=== PATIENT | male | born 1970 | race Caucasian/White ===

== ENCOUNTER 2021-03-16 08:40 | Emergency (ER) | payer OTHER, SELFPAY ==
--- NOTE | ~2021-03-16 | XR_ITS ---
EXAMINATION: XR chest 2V DATE: 03/16/2021 09:04 INDICATION: Chest pain after a sneeze. TECHNIQUE: Frontal and lateral views of the chest were obtained. COMPARISON: None. FINDINGS: A calcified left lung nodule is consistent with old granulomatous disease. No pleural effus ion or pneumothorax. The heart size is normal. IMPRESSION: 1. No acute cardiopulmonary disease. Reviewed, dictated and finalized at location A. ONARY FELLOW
[2021-03-16 08:50] VITALS: BP 143/81; PULSE 82; RESP 16; TEMP 36.8; O2SAT 96
--- NOTE | 2021-03-16 09:11 | ED.GENADULT ---
HPI - General Adult General Chief complaint: Unspecified Stated complaint: Chest Pain Time Seen by Provider: 03/16/21 09:12 Source: patient, RN notes reviewed and old records reviewed Mode of arrival: ambulatory Limitations: no limitations History of Present Illness HPI narrative: 60-year-old male presents to the [facility] with complaints of right sternal border chest wall pain after sneezing on Tuesday. Has taken ibuprofen 1 time. States it hurts to move, breathe and belch. Pain is reproducible with palpation along the right sternal border to the right pectoral muscle. Denies left-sided chest pain. No pain radiating. No nausea vomiting or diarrhea. No abdominal pain. Denies shortness of breath. Related Data Allergies Allergy/AdvReac Type Severity Reaction Status Date / Time Penicillins Allergy Unknown childhood Verified 03/16/21 09:21 allergy Review of Systems Review of Systems: All systems reviewed & are unremarkable except as noted in HPI and below Constitutional: Constitutional: Reports no additional constitutional complaints, Denies chills and Denies fever(s) Eyes: Eyes: Reports no additional eye complaints ENT: Reports system reviewed and no additional complaints, except as documented Cardiovascular: Cardiovascular: Reports chest pain (Chest wall pain right sternal border), Denies rapid heart rate, Denies pedal edema, Denies edema, Denies irregular heart rhythm, Denies leg edema, Denies lightheadedness and Denies radiating jaw, neck or arm pain Respiratory: Respiratory: Reports no additional respiratory complaints, Denies cough, Denies dyspnea and Denies wheezing Gastrointestinal: Gastrointestinal: Reports no additional gastrointestinal complaints Musculoskeletal: Musculoskeletal: Reports no additional musculoskeletal complaints Integumentary/Breasts: Skin/Breast: Reports system reviewed and no additional complaints, except as docu Neurologic: Reports system reviewed and no additional complaints, except as documented Psychiatric: Psychiatric: Reports no additional psychiatric complaints Allergic/Immunologic: Allergic/Immunologic: Reports no additional allergic/immunologic complaints [facility] Past Medical History Medical History Alcoholism /alcohol abuse Elevated blood pressure reading Hx of thyroid cancer Hyperglycemia Sleep apnea Surgical History Surgical History H/O hemorrhoidectomy History of tonsillectomy Family History Family History Father Hypertension Mother No problems noted. Sibling Diverticulitis Father Hypertension Social History Social History Smoking packs per day: 0.5 Smoking cigarettes per day: 10.0 Smoking status: Current every day smoker Alcohol intake: current Comments At the time of my signature, I reviewed and agree with the nursing past medical, surgical, social, and family history. There is no relevant family history pertinent to the patient complaint. Exam Const: General: healthy appearing, no acute distress and alert Nutritional Appearance: well nourished and obese Orientation/consciousness: patient oriented x3 Limitations: no limitations HENMT: Head: normal to inspection Ears: external ears normal Eyes: Pupils: Equal, round and reactive pupils present Neck: Neck: normal visual inspection, no lymphadenopathy and no meningeal signs Chest: Chest palpation & inspection: tenderness pectoral muscle (Right side) and costochondral junction (Right side) Resp: Effort & Inspection: normal respiratory effort and no use of accessory muscles Auscultation: clear to auscultation bilaterally, no crackles, no rales, no rhonchi and no wheezes Cardio: Rate: regular rate Rhythm: regular rhythm GI: GI Palp: Yes Soft to palpation and No Tenderness to palpation pre
== END 2021-03-16 09:25 | disposition home or self-care (01) ==
PROVIDERS: Emergency Provider Nurse Practitioner; PCP Internal Medicine
DX: M94.0 Chondrocostal junction syndrome [Tietze] (principal); F17.210 Nicotine dependence, cigarettes, uncomplicated
CPT/HCPCS: 71046; 99213; G0463

== ENCOUNTER 2021-11-17 08:00 | Outpatient (NON) | payer OTHER, SELFPAY | END 2021-11-17 08:01 | disposition home or self-care (01) | LOC: ANHLAB 11-18 08:07 | PROVIDERS: PCP Internal Medicine; Visit Provider Internal Medicine Gastroenterology | DX: R19.5 Other fecal abnormalities (principal); D12.3 Benign neoplasm of transverse colon; K63.5 Polyp of colon | CPT/HCPCS: 88305 ==

== ENCOUNTER 2021-11-17 12:21 | Day surgery (SDC) | payer OTHER, SELFPAY ==
[2021-10-29 13:33] VITALS: BMI 32.8
--- NOTE | 2021-11-17 07:19 | WPDANESEPPF ---
Anes - Initial Pre Proc Eval Procedure: Operation Date: 11/17/21 13:00 Proposed Procedures p Diagnostic Colonoscopy - Jared Ojeda MD Date/Time: 11/17/21 07:19 Surgeon: Jared Ojeda MD Pre Op Diagnosis: positive cologaurd Patient Data Age: 50 Gender: M Height: 1.78 m Weight: 104 kg Allergies Allergy/AdvReac Type Severity Reaction Status Date / Time Penicillins Allergy Unknown childhood Verified 11/17/21 12:44 allergy Home Medications Medication Instructions Recorded Confirmed Type trazodone 100 mg tablet 200 mg PO .hs PRN insomnia #180 08/10/21 11/17/21 Rx tabs sodium sul 1.479 gram-potas ch See Rx Instructions PO PER PKG DIR 09/18/21 Rx 0.188 gram-magnes sul 0.225 gram #24 tabs tablet (Sutab) losartan 25 mg tablet See Rx Instructions .Route 10/08/21 11/17/21 Rx .COMPLEX #90 tabs ibuprofen 600 mg tablet 600 mg PO DAILY PRN pain 10/29/21 11/17/21 History naltrexone 50 mg tablet 50 mg PO DAILY 10/29/21 11/17/21 History Patient hx anesthesia problems: none Family hx anesthesia problems: none Results Review: All pre-operative results and documents have been reviewed as part of the pre-operative evaluation. [facility] Past Medical History Medical History (Updated 11/17/21 @ 13:46 by Bradly Silva DO) Alcoholism /alcohol abuse quit 2020 Elevated blood pressure reading Hx of thyroid cancer Hyperglycemia Hypertension Obesity Sleep apnea Tobacco abuse Surgical History Surgical History (Updated 08/11/21 @ 14:15 by Lin Vigil NP) H/O hemorrhoidectomy H/O partial thyroidectomy History of tonsillectomy Family History Family History Father Hypertension Mother No problems noted. Sibling Diverticulitis Father Hypertension Social History Social History (Updated 11/17/21 @ 13:46 by Bradly Silva DO) Smoking packs per day: 0.5 Smoking cigarettes per day: 10.0 Smoking status: Current every day smoker Tobacco type: cigarettes Alcohol intake: current Alcohol use details: former alcoholic - quit 2020 Living arrangements: with family Spiritual care concerns: No Anes - Eval Final PreProcedure Day of Procedure 11/17/21 07:19 Patient weight: obese Heart: regular rate and rhythm Lungs: clear to auscultation Airway: Mallampati scale class II Neurological: alert and oriented Last oral intake: >/= 8 hours ASA classification: III Emergent: no Anesthetic plan: proceed Anesthesia type and monitoring: general GIVS and standard monitoring Results Review: All pre-operative results and documents have been reviewed as part of the pre-operative evaluation. Informed Consent: The patient's anesthetic plan and its attendant risks and benefits were discussed with the patient/family/POA. Questions were solicited and answers provided to the satisfaction of the patient/family/POA.
[2021-11-17 12:47] VITALS: BP 119/83; PULSE 71; RESP 12; TEMP 36.8; O2SAT 98
[2021-11-17] MEDS: LACTATED RINGERS 1,000 ML 150 ML IV CONT (12:54)
[2021-11-17 12:56] VITALS: BMI 32.5
--- NOTE | 2021-11-17 13:47 | PM.HPGS ---
History of Present Illness History of Present Illness Consent: Risks, benefits, and alternatives have been discussed and questions answered. Patient agrees to proceed with procedure. Chief complaint: positive cologaurd Narrative: Annie Cortes is a 50 year old male here for first colonoscopy, had positive cologuard Review of Systems Constitutional: Constitutional: Denies headache(s) and Denies weakness Eyes: Eyes: Denies blurry vision ENT: Reports Normal hearing present, Denies headache(s) and Denies neck pain Cardiovascular: Cardiovascular: Denies chest pain and Denies dyspnea Respiratory: Respiratory: Denies dyspnea Gastrointestinal: Gastrointestinal: Reports no additional gastrointestinal complaints Genitourinary: Genitourinary: Denies dysuria Musculoskeletal: Musculoskeletal: Denies neck pain Integumentary/Breasts: Skin/Breast: Denies dry skin Neurologic: Reports Normal hearing present, Denies headache(s) and Denies weakness Psychiatric: Psychiatric: Denies anxiety Endocrine: Endocrine: Denies change in body appearance Hematologic/Lymphatic: Hematologic/Lymphatic: Denies easy bleeding Allergic/Immunologic: Allergic/Immunologic: Denies urticaria PMF Past Medical History Medical History (Updated 11/17/21 @ 13:46 by Bradly Silva DO) Alcoholism /alcohol abuse quit 2020 Elevated blood pressure reading Hx of thyroid cancer Hyperglycemia Hypertension Obesity Sleep apnea Tobacco abuse Surgical History Surgical History (Updated 08/11/21 @ 14:15 by Lin Vigil NP) H/O hemorrhoidectomy H/O partial thyroidectomy History of tonsillectomy Family History Family History Father Hypertension Mother No problems noted. Sibling Diverticulitis Father Hypertension Social History Social History (Updated 11/17/21 @ 13:46 by Bradly Silva DO) Smoking packs per day: 0.5 Smoking cigarettes per day: 10.0 Smoking status: Current every day smoker Tobacco type: cigarettes Alcohol intake: current Alcohol use details: former alcoholic - quit 2020 Living arrangements: with family Spiritual care concerns: No Meds Home Medications and Allergies Home Medications Medication Instructions Recorded Confirmed Type trazodone 100 mg tablet 200 mg PO .hs PRN insomnia #180 08/10/21 11/17/21 Rx tabs sodium sul 1.479 gram-potas ch See Rx Instructions PO PER PKG DIR 09/18/21 Rx 0.188 gram-magnes sul 0.225 gram #24 tabs tablet (Sutab) losartan 25 mg tablet See Rx Instructions .Route 10/08/21 11/17/21 Rx .COMPLEX #90 tabs ibuprofen 600 mg tablet 600 mg PO DAILY PRN pain 10/29/21 11/17/21 History naltrexone 50 mg tablet 50 mg PO DAILY 10/29/21 11/17/21 History Allergies Allergy/AdvReac Type Severity Reaction Status Date / Time Penicillins Allergy Unknown childhood Verified 11/17/21 12:44 allergy Vital Signs Vital Signs - 24 hr 11/17/21 12:47 Temperature 98.3 F Pulse Rate 71 Respiratory Rate 12 Blood Pressure 119/83 Pulse Oximetry 98 Oxygen Delivery Room Air Exam Const: General: comfortable and no acute distress HENMT: General nose exam: Normal nares present Eyes: General: appearance normal, both eyes and all related structures Neck: Neck: no JVD Resp: Auscultation: clear to auscultation bilaterally Cardio: Rate: regular rate Rhythm: regular rhythm GI: Inspection: non-distended GI Palp: Yes Soft to palpation Skin: General skin exam: normal color Neuro: General: gait normal Speech: normal speech Extrem: General: normal to inspection Psych: Mental Status: mental status grossly normal Assessment and Plan Assessment and plan (1) Positive colorectal cancer screening using Cologuard test: Code(s): R19.5 - Other fecal abnormalities Status: Acute Assessment and Plan: colonoscopy
[2021-11-17 14:07] VITALS: BP 112/76; PULSE 70; RESP 18; O2SAT 99
[2021-11-17 14:17] VITALS: BP 123/84; PULSE 70; RESP 18; O2SAT 98
[2021-11-17 14:27] VITALS: BP 120/70; PULSE 70; RESP 18; O2SAT 98
--- NOTE | 2021-11-17 14:31 | SUR.PHASEII ---
PT ATE CRACKERS AND TOOK PO FLUIDS. DENIES PAIN. MEETS DISCHARGE CRITERIA
--- NOTE | 2021-11-17 14:33 | WPDANESPN ---
Anes - Prog Note Post-Op Date/Time: 11/17/21 14:33 Cardiovascular status: normal Respiratory status: normal Airway patency: baseline Mental status: baseline Post-Op hydration status: normal Vital Signs: Last Vital Signs Temp 36.8 C 11/17/21 12:47 Pulse 70 11/17/21 14:27 Resp 18 11/17/21 14:27 BP 120/70 11/17/21 14:27 Pulse Ox 98 11/17/21 14:27 O2 Del Method Room Air 11/17/21 14:27 Pain Score (VAS): 0 I/O: Intake & Output 11/16/21 11/17/21 11/17/21 23:59 07:59 15:59 Intake Total 150 Balance 150 Post-procedural complaints: none Patient Feedback: Patient satisfied with anesthetic care. Other Findings: Patient vital signs back to baseline. Patient denies nausea and vomiting. Patient's pain under control. Patient OK for discharge.
== END 2021-11-17 14:33 | disposition home or self-care (01) ==
PROVIDERS: PCP Internal Medicine; Visit Provider Internal Medicine Gastroenterology
PROC: 0DJD8ZZ Inspection of Lower Intestinal Tract, Via Natural or Artificial Opening Endoscopic (ICD-10-PCS; CPT 45378; principal; 2021-11-17 13:00)
DX: R19.5 Other fecal abnormalities (principal)
CPT/HCPCS: 45385; 45380

== ENCOUNTER 2023-10-29 09:33 | Outpatient (CLI) | payer OTHER, SELFPAY ==
--- NOTE | ~2023-10-29 | XR_ITS ---
EXAMINATION: HAND-DORIAN ARTHRITIS 3+VIEWS DATE: 10/29/2023 09:53 INDICATION: Bilateral wrist pain and swelling TECHNIQUE: Posteroanterior, lateral, and oblique views of the left and of the right hands as well as a ballcatchers view of both hands were obtained. COMPARISON: None. FINDINGS: Alignment is normal at the bilateral hands and wrists. Old healed fracture deformity right fifth meta carpal. No acute fracture. Severe osteoarthritis at the bilateral first carpal metacarpal joints. Add itional polyarticular osteoarthritis, moderate severity at several of the bilateral distal interphala ngeal joints and mild at the remaining interphalangeal joints, the bilateral distal radioulnar, trisc aphe and multiple metacarpophalangeal joints. Subarticular cystic change within sclerotic margins at the head of the right second metacarpal. No erosions to suggest an inflammatory arthritis. IMPRESSION: 1. Polyarticular osteoarthritis at the bilateral hands and wrists, severe at the bilateral first carp al metacarpal joints. Reviewed, dictated and finalized at location A. IMPRESSION: 1. Polyarticular osteoarthritis at the bilateral hands and wrists, severe at th e bilateral first carpal metacarpal joints.
== END 2023-10-29 09:34 | disposition home or self-care (01) ==
LOC: ANHIMG 09:34
PROVIDERS: PCP Internal Medicine; Visit Provider Clinical Nurse Specialist
DX: M19.041 Primary osteoarthritis, right hand (principal); M19.042 Primary osteoarthritis, left hand; M19.031 Primary osteoarthritis, right wrist; M19.032 Primary osteoarthritis, left wrist
CPT/HCPCS: 73130

== ENCOUNTER 2023-11-09 08:03 | Outpatient (CLI) | payer OTHER, SELFPAY ==
--- NOTE | ~2023-11-09 | US_ITS ---
EXAMINATION: US right upper quadrant DATE: 11/09/2023 08:46 INDICATION: Elevation of levels of liver transaminases. TECHNIQUE: Multiple grayscale and Doppler ultrasound images of the abdomen were obtained. COMPARISON: None FINDINGS: The visualized portions of the head, body, and tail of the pancreas are normal. There is di ffuse hepatic steatosis. No liver surface nodularity. There is a 3.1 cm cyst in the liver. There is n ormal flow in main portal vein. The gallbladder is normal in size. No gallstones or gallbladder wall thickening. There is no sonographic Bah's sign. The common duct is normal and measures 3 mm. IMPRESSION: 1. Diffuse hepatic steatosis. Reviewed, dictated and finalized at location A.
== END 2023-11-09 08:04 | disposition home or self-care (01) ==
PROVIDERS: PCP Internal Medicine; Visit Provider Clinical Nurse Specialist
DX: R74.01 Elevation of levels of liver transaminase levels (principal); K76.0 Fatty (change of) liver, not elsewhere classified
CPT/HCPCS: 76705

== ENCOUNTER 2024-02-22 15:17 | Outpatient (CLI) | payer OTHER, SELFPAY ==
--- NOTE | 2024-02-22 15:32 | ECG_ITS ---
Test Date: 2024-02-22 15:49:45 Measurements Intervals [place] Rate: 72 P: 48 NC: 152 QRS: 12 QRSD: 109 T: 50 QT: 368 QTc: 405 Interpretive Statements SINUS RHYTHM INCOMPLETE RIGHT BUNDLE BRANCH BLOCK BASELINE ARTIFACT- II, III, AVF BORDERLINE ECG No previous ECG available for comparison Electronically Signed On 02-22-2024 15:58:21 [employer] by Naresh Hernández D.O.
== END 2024-02-22 15:18 | disposition home or self-care (01) ==
LOC: ANHCARD 15:19
PROVIDERS: PCP Internal Medicine; Visit Provider Anesthesiology
DX: Z01.818 Encounter for other preprocedural examination (principal); I10 Essential (primary) hypertension; I45.10 Unspecified right bundle-branch block
CPT/HCPCS: 93005

== ENCOUNTER 2024-02-29 01:11 | Day surgery (SDC) | payer OTHER, SELFPAY ==
[2024-02-21 13:33] VITALS: BMI 30.9
--- NOTE | 2024-02-21 13:40 | PC.NURSE ---
Report to the Outpatient Waiting Room, entrance under the green pavilion located off [facility], at time _0700_ on date _11-25-2080_. Planned Procedure Time: _0900_.? Time changes happen often and if your time is changed the preop area will call you the afternoon before. - You and your visitor will be asked to self-screen and do not enter if you have any COVID symptoms. Please call surgeon if you need to reschedule. - A mask is optional within the hospital at this time. - No food or drink from midnight until time of surgery and no smoking Take only the following medications with a SIP of water on the morning of surgery: __None DO NOT STOP ANY OF YOUR OTHER PRESCRIPTION MEDICATIONS PRIOR TO SURGERY EXCEPT THE FOLLOWING Medications to discontinue per physician ___None, patient says Dr Rodriguez told him to take Ibuprofen or naproxen.__ Please no make-up, nail mauritanian, hairspray, perfume, deodorant, or body powder the day of surgery.? No jewelry (including any body piercings) or valuables the day of surgery, leave them at home.? Please take a shower or bath the night before, or the morning of, surgery with an antibacterial soap.? Wear comfortable, loose fitting clothing.? - Jewelry must be removed prior to entering the operating room.? Rings and piercings that are not removed may be cut off. - The hospital will not accept responsibility for valuables.? - Please leave all valuables, including medications, at home the day of surgery. If you are going home after surgery, a licensed sweeper driver must drive you home.? - NO public transportation without another adult if you receive anesthesia. - We recommend that an adult stay with you for 24 hours following discharge. - We also recommend that you do not drive, make important decision, drink alcoholic beverages, or take any drugs that were not prescribed by your health care provider for at least 24 hours after your discharge time. Follow any additional instructions given to you from your surgeon. Telephone instructions given to _Annie___and asked if any additional questions and then verbalized understanding. Patient advised to call surgeon office or pre surgery nurse liaison [phone] if any additional questions.
--- NOTE | 2024-02-29 06:49 | PM.HPGS ---
History of Present Illness History of Present Illness Chief complaint: primary OA left hand Narrative: Patient seen and examined in pre-operative holding area. No interval change in medical history or symptoms. Patient recalls previous discussion of benefits and alternatives to procedure. Continues to desire to proceed with left basal joint arthroplasty. Reviewed procedure, post-op expectations and risks including but not limited to bleeding, infection, injury to tendon/nerve/vessel, decreased hand function, stiffness, RSD, no change or worsening of symptoms, hardware complication. I discussed the possible use of assistants and their participation in the case. Patient stated understanding and signed the consent form wishing to proceed. Review of Systems Review of Systems: All systems reviewed & are unremarkable except as noted in HPI and below PMFSH Past Medical History Medical History Alcoholism /alcohol abuse Elevated blood pressure reading Hx of thyroid cancer Hyperglycemia Hypertension Obesity Positive colorectal cancer screening using Cologuard test Sleep apnea Tobacco abuse Surgical History Surgical History H/O hemorrhoidectomy H/O partial thyroidectomy History of tonsillectomy Family History Family History Father Hypertension Mother No problems noted. Sibling Diverticulitis Father Hypertension Social History Social History Smoking packs per day: 0.5 Smoking cigarettes per day: 10.0 Years smoked: 30 Smoking pack-years: 15.00 Smoking status: Current every day smoker Tobacco type: cigarettes Alcohol intake: current Drinks per week: 40 Alcohol use details: former alcoholic - quit 2020 Lack of Transportation: No Lack of Food: Never True Current Housing: I Have Housing Concerned About Future Housing: No Difficulty Paying Gas/Electric Bills: No Difficulty Paying for Meds: No Currently Unemployed: No Education: High School Diploma/GED Living arrangements: with family Spiritual care concerns: No Meds Home Medications and Allergies Home Medications Medication Instructions Recorded Confirmed Type naproxen sodium 220 mg capsule 220 mg PO BID PRN Pain 11/22/22 02/21/24 History (Aleregina) losartan 50 mg tablet 50 mg PO DAILY #90 tabs 12/19/23 02/21/24 Rx trazodone 100 mg tablet 200 mg PO .hs PRN insomnia #180 12/19/23 02/21/24 Rx tabs triamcinolone acetonide 0.1 % 1 applic topical BID #80 grams 12/20/23 02/21/24 Rx topical ointment Allergies Allergy/AdvReac Type Severity Reaction Status Date / Time Penicillins Allergy Unknown childhood Verified 02/21/24 13:31 allergy Exam Narrative: unchnaged Assessment and Plan Assessment and plan (1) Osteoarthritis of hands, bilateral: Qualifiers: Osteoarthritis type: primary Qualified Code(s): M19.041 - Primary osteoarthritis, right hand; M19.042 - Primary osteoarthritis, left hand Code(s): M19.041 - Primary osteoarthritis, right hand; M19.042 - Primary osteoarthritis, left hand Status: Acute Assessment and Plan: cont as above
--- NOTE | 2024-02-29 06:50 | W.PM.PROC2 ---
Procedure Note - Detailed Date of Procedure 02/29/24 Pre-op Diagnosis left basal joint arthritis Post-op Diagnosis Same Procedure Performed left basal joint artrhoplasty with mini-tightrope Surgeon Kaylin Rodriguez MD Manager [employer] peggy garrett pa-c Anesthesia General Description of Procedure INFORMED CONSENT: The patient was seen and examined and marked in the pre-op area.? The patient signed the consent form. PROCEDURE IN DETAIL:The patient taken back to OR on the stretcher in supine position. Time out performed with anesthesia, surgeon and staff agreeing on patient's name site and surgery to be performed SCDs were placed on the lower extremities and inflated. A tourniquet was placed on {left} upper extremity and antibiotics given IV After anesthesia administered sedation I injected {8}cc 1%lido and 0.5% marcaine plain at the operative site The?{left upper extremity}?was prepped and draped in sterile fashion the??{left upper extremity} was? exsanguinated with Esmarch bandage and tourniquet inflated to 250mmHg I proceeded with making an incision over the left first cmc joint between first and third extensor compartments through skin and dermis. Littler scissors were used to spread down to the joint capsule. A dorsal branch of the radial sensory nerve was identified and protected throughout the procedure. I incised the capsule with 15 blade and elevated capsular flaps. Mini c-arm was used to verify the position of dissection and trapezium. Using a compination of 15 blade and Mcglamery elevator the trapezium was resected. This was verified on mini c-arm. Next, I proceeded with making a longitudinal incision over the base of the second metacarpal through skin and dermis with 15 blade. Littler scissors were used to spread down to the metacarpal. An incision was made in periosteum which was refelexted on the ulnar side. I next proceeded with using mini c-ring guid and placing the dual gauge looped wire from radial side of first metacarpal to base of second metacarpal. Wire placement was confirmed on multiple views of fluoro. I used 15 blade to make small incision at k-wire insertion site by the thumb spreading down to periosteum and then proceeded with placing the arthrex mini tightrope in standard fashion. The button was verified as abutting the first metacarpal and then second button placed down to the second metacarpal. thumb distraction, positiong and tensioning was verified and the tightrope sewn into place. There was no impingement on thumb range of motion and no subsidence on axial load. I irrigated with normal saline. Repaired periosteum over second metacarpal buttong with 3-0 vicry. 3-0 vicryl used for capsule repair. 3-0 vicryl used for dermis and 4-0 monocryl for subcuticular A dressing of dermabond, 4x4, yvette, and a thumb spica splint was applied for patient safety, security, and comfort and secured with an abbey bandage after the tourniquet was let down noting the hand was warm and well perfused. The patient was then awaken from anesthesia and transferred to the recovery room in stable condition.? Complications - none EBL- 0cc Disposition - home in stable conditions Peggy Garrett PA-C was essential for positioning, retraction, closure and dressing placement [facility] Billing Surgery - Charge Forward: Surgery Billing ([id number] for peggy)
[2024-02-29 07:20] VITALS: BP 133/93; PULSE 82; RESP 18; TEMP 36.7; O2SAT 100
[2024-02-29 07:36] VITALS: BMI 30.7
[2024-02-29] MEDS: LACTATED RINGERS 1,000 ML 30 ML IV CONT (07:41)
--- NOTE | 2024-02-29 08:30 | SUR.PREOP ---
0815 Dr Rodriguez notified patient of surgery cancellation due to broken C-arm machine. Patient notified that he will be contacted for rescheduling.
== END 2024-02-29 08:45 | disposition home or self-care (01) ==
PROVIDERS: PCP Internal Medicine; Visit Provider Plastic Surgery
PROC: (CPT 25447; principal; 2024-02-29 09:00)
DX: M19.042 Primary osteoarthritis, left hand (principal); Z53.8 Procedure and treatment not carried out for other reasons
CPT/HCPCS: 99213; A9270; G0463; J2004; J2250; J3010; J7120

== ENCOUNTER 2024-03-28 00:35 | Day surgery (SDC) | payer OTHER, SELFPAY ==
[2024-03-20 15:49] VITALS: BMI 30.4
--- NOTE | 2024-03-20 15:50 | PC.NURSE ---
Report to the Outpatient Waiting Room, entrance under the green pavilion located off [facility], at time _0600_ on date _[id number]_. Planned Procedure Time: _0730_.? Time changes happen often and if your time is changed the preop area will call you the afternoon before. - You and your visitor will be asked to self-screen and do not enter if you have any COVID symptoms. Please call surgeon if you need to reschedule. - A mask is optional within the hospital at this time. Patients may have clear liquids (water, carbonated beverages, clear teas, apple juice) until 3 hours prior to surgery with a maximum of 20 ounces. - No food from midnight until time of surgery and no smoking. This includes no chewing gum, candy or mints. Take only the following medications with a SIP of water on the morning of surgery: None DO NOT STOP ANY OF YOUR OTHER PRESCRIPTION MEDICATIONS PRIOR TO SURGERY EXCEPT THE FOLLOWING Medications to discontinue per physician Multivitamin Date to take last wtkb____[id number]____Vjxaznf last took Semaglutide 02-29-2024 Please no make-up, nail sammarinese, hairspray, perfume, deodorant, or body powder the day of surgery.? No jewelry (including any body piercings) or valuables the day of surgery, leave them at home.? Please take a shower or bath the night before, or the morning of, surgery with an antibacterial soap.? Wear comfortable, loose fitting clothing.? . - Jewelry must be removed prior to entering the operating room.? Rings and piercings that are not removed may be cut off. - The hospital will not accept responsibility for valuables.? - Please leave all valuables, including medications, at home the day of surgery. If you are going home after surgery, a licensed taxi cab driver must drive you home.? - NO public transportation without another adult if you receive anesthesia. - We recommend that an adult stay with you for 24 hours following discharge. - We also recommend that you do not drive, make important decision, drink alcoholic beverages, or take any drugs that were not prescribed by your health care provider for at least 24 hours after your discharge time. Follow any additional instructions given to you from your surgeon. Telephone instructions given to _Annie___and asked if any additional questions and then verbalized understanding. Patient advised to call surgeon office or pre surgery nurse liaison [phone] if any additional questions.
--- NOTE | 2024-03-20 16:01 | PC.NURSE ---
Report to the Outpatient Waiting Room, entrance under the green pavilion located off [facility], at time _0600_ on date _[id number]_. Planned Procedure Time: _0730_.? Time changes happen often and if your time is changed the preop area will call you the afternoon before. - You and your visitor will be asked to self-screen and do not enter if you have any COVID symptoms. Please call surgeon if you need to reschedule. - A mask is optional within the hospital at this time. - No food or drink from midnight until time of surgery and no smoking. This includes no chewing gum, candy or mints. Take only the following medications with a SIP of water on the morning of surgery: None DO NOT STOP ANY OF YOUR OTHER PRESCRIPTION MEDICATIONS PRIOR TO SURGERY EXCEPT THE FOLLOWING Medications to discontinue per physician ____Multivitamin Date to take last mqcl___[id number] Please no make-up, nail macedonian, hairspray, perfume, deodorant, or body powder the day of surgery.? No jewelry (including any body piercings) or valuables the day of surgery, leave them at home.? Please take a shower or bath the night before, or the morning of, surgery with an antibacterial soap.? Wear comfortable, loose fitting clothing.? . - Jewelry must be removed prior to entering the operating room.? Rings and piercings that are not removed may be cut off. - The hospital will not accept responsibility for valuables.? - Please leave all valuables, including medications, at home the day of surgery. If you are going home after surgery, a licensed courtesy van driver must drive you home.? - NO public transportation without another adult if you receive anesthesia. - We recommend that an adult stay with you for 24 hours following discharge. - We also recommend that you do not drive, make important decision, drink alcoholic beverages, or take any drugs that were not prescribed by your health care provider for at least 24 hours after your discharge time. Follow any additional instructions given to you from your surgeon. Telephone instructions given to __Kelly__and asked if any additional questions and then verbalized understanding. Patient advised to call surgeon office or pre surgery nurse liaison [phone] if any additional questions.
[2024-03-28] VITALS (8 sets, daily range): BP systolic 117–155; BP diastolic 73–93; PULSE 80–100; RESP 12–20; TEMP 36.5–36.7; O2SAT 93–98
--- NOTE | ~2024-03-28 | XR_ITS ---
EXAMINATION: XR surgery orthopedic DATE: 03/28/2024 09:09 INDICATION: Left basal joint arthroplasty. TECHNIQUE: 5 fluoroscopic images of the left hand were obtained during procedure performed by Dr. Gerry negrete. Radiologist was not present for the imaging or procedure. The amount of fluoroscopy time use d during this procedure was 0.4 minutes. Total DAP was 1.34 c0Gycm^2 COMPARISON: None. FINDINGS: Initial fluoroscopic image demonstrates the tip of a probe projecting over the scaphotrapezial articu lation. The trapezium has been resected on the subsequent images with residual lucent gas at the oper ative bed. A wire subsequently passed across the base of the first and second metacarpals. Final imag es demonstrate metallic buttons likely for tightrope type fixation across the base of the first and s econd metacarpals. No fractures identified. IMPRESSION: 1. Expected appearance during trapezial resection with tightrope type fixation across the first and s econd metacarpal bases. See procedure note for further detail. Reviewed, dictated and finalized at location A. TRONIC ENGINEERING TECHNICIAN IMPRESSION: 1. Expected appearance during trapezial resection with tightrope type fixation across the first and second metacarpal bases. See procedure note for further de tail.
[2024-03-28] MEDS: LACTATED RINGERS 1,000 ML 30 ML IV CONT ×2 (06:08→09:08)
--- NOTE | 2024-03-28 06:41 | PM.HPGS ---
History of Present Illness History of Present Illness Chief complaint: o/a bilateral hands Narrative: Patient seen and examined in pre-operative holding area. No interval change in medical history or symptoms. Patient recalls previous discussion of benefits and alternatives to procedure. Continues to desire to proceed with left basal joint artrhoplasty with mini tightrope . Reviewed procedure, post-op expectations and risks including but not limited to bleeding, infection, injury to tendon/nerve/vessel, decreased hand function, stiffness, RSD, no change or worsening of symptoms, failure of repair, hardware complications. I discussed the possible use of assistants and their participation in the case. Patient stated understanding and signed the consent form wishing to proceed. Review of Systems Review of Systems: All systems reviewed & are unremarkable except as noted in HPI and below PMFSH Past Medical History Medical History Positive colorectal cancer screening using Cologuard test Tobacco abuse Obesity Hypertension Alcoholism /alcohol abuse Hx of thyroid cancer Hyperglycemia Sleep apnea Elevated blood pressure reading Surgical History Surgical History H/O partial thyroidectomy History of tonsillectomy H/O hemorrhoidectomy Family History Family History Father Hypertension Mother No problems noted. Sibling Diverticulitis Father Hypertension Social History Social History Smoking packs per day: 0.5 Smoking cigarettes per day: 10.0 Years smoked: 30 Smoking pack-years: 15.00 Smoking status: Current every day smoker Tobacco type: cigarettes Additional smoking assessment comments: 2 packs per week Alcohol intake: current Drinks per week: 24 Alcohol use details: former alcoholic - quit 2020 Lack of Transportation: No Lack of Food: Never True Current Housing: I Have Housing Concerned About Future Housing: No Difficulty Paying Gas/Electric Bills: No Difficulty Paying for Meds: No Currently Unemployed: No Education: High School Diploma/GED Living arrangements: with family Spiritual care concerns: No Meds Home Medications and Allergies Home Medications ?Medication ?Instructions ?Recorded ?Confirmed ?Type naproxen sodium 220 mg capsule 220 mg PO BID PRN Pain 11/22/22 03/20/24 History (Aleve) semaglutide (weight loss) See Rx Instructions .Route .COMPLEX 02/29/24 03/20/24 History multivitamin 1 tablet PO DAILY 03/02/24 03/20/24 History losartan 50 mg tablet 50 mg PO DAILY #90 tabs 03/13/24 03/20/24 Rx trazodone 100 mg tablet 200 mg (2 x 100 mg) PO .hs PRN 03/13/24 03/20/24 Rx insomnia #180 tabs Allergies Allergy/AdvReac Type Severity Reaction Status Date / Time Penicillins Allergy Unknown childhood Verified 03/20/24 15:42 allergy Exam Narrative: unchnaged Assessment and Plan Assessment and plan (1) Osteoarthritis of first carpometacarpal joint of left hand: Qualifiers: Osteoarthritis type: primary Qualified Code(s): M18.12 - Unilateral primary osteoarthritis of first carpometacarpal joint, left hand Code(s): M18.12 - Unilateral primary osteoarthritis of first carpometacarpal joint, left hand Status: Acute Assessment and Plan: cont as above
--- NOTE | 2024-03-28 06:42 | P.OP_ITS ---
Procedure Note - Detailed Date of Procedure 03/28/24 Pre-op Diagnosis left basal joint arthritis Post-op Diagnosis Same Procedure Performed left basal joint arthroplasty with mini tightrope Surgeon Kaylin Rodriguez MD Warehouse Coordinator peggy garrett pa-c Anesthesia MAC Description of Procedure INFORMED CONSENT: The patient was seen and examined and marked in the pre-op area.? The patient signed the consent form. PROCEDURE IN DETAIL:The patient taken back to OR on the stretcher in supine p osition. Time out performed with anesthesia, surgeon and staff agreeing on patient's name site and surgery to be performed SCDs were placed on the lower extremities and inflated. A tourniquet was placed on {left} upper extremity and antibiotics given IV After anesthesia administered sedation I injected {8}cc 1%lido with epi and 0.5% marcaine plain at the operative site The?{left upper extremity}?was prepped and draped in sterile fashion the??{left upper extremity} was? exsanguinated with Esmarch bandage and tourniquet inflated to 250mmHg I proceeded with making a longitudinal incision over left trapezium through skin and dermis with a 15 blade scalpel between first and third compartments. Littler scissors were used to spread down to the joint capsule. The dorsal radial sensory nerve was identified and protectedt throughout the procedure as well as dorsal radial artery. i made my capsulotomy sharply with 15 blade and elevated capsular flaps. I verified trapezium on mini c-arm and proceeded with trapeziectomy. This was verified on multiple views of fluoro. Next I proceeded with maing an incision over the proximal portion of second metacarpal on dorsum through skin and dermis with a 15 blade scalpel. Littler scissors were used to spread down the second metacarpal periosteum. [place] elevator was used to reflect periorsteum and intrinsic musculature on ulnar side. Next I proceeded with using the arthrex mini c-ring guide and placed the double gauge k-wire in radial to ulnar fashion from base of first metacarpal coming out on ulnar aspect second metacarpal base. wire placement was verified with fluoro and noting satisfactory position I proceeded with placing the mini tightrope in standard fashion. This was provisionally tightened and on live fluoro noting full thumb ROM and minimal subsidence on axial load without impingement. The tightrope was tightened. I irrigated with normal saline. Periosteum and capsule repaired with 3-0 vicryl 3-0 vicryl for dermis and 4-0 monocryl for subcuticular closure. A dressing of Dermabond, 4x4, yvette, and a thumb spica splint was applied for patient safety, security, and comfort and secured with an abbey bandage after the tourniquet was let down noting the hand was warm and well perfused. The patient was then awaken from anesthesia and transferred to the recovery room in stable condition.? Complications - none EBL- 0cc Disposition - home in stable conditions peggy garrett pa-c was essential for positioning, retraction, closure and dressing placement [facility] [place] Surgery - Charge Forward: Surgery Billing ([id number] for peggy)
--- NOTE | 2024-03-28 06:50 | WPDANESEPPF ---
Anes - Initial Pre Proc Eval Procedure: Operation Date: 03/28/24 07:30 Proposed Procedures p Left Basal Joint Arthroplasty with Mini Tight-Rope - Kaylin Rodriguez MD Date/Time: 03/28/24 06:50 Surgeon: Kaylin Rodriguez MD Pre Op Diagnosis: o/a bilateral hands Patient Data Age: 53 Gender: M Height: 1.78 m Weight: 96.4 kg Allergies Allergy/AdvReac Type Severity Reaction Status Date / Time Penicillins Allergy Unknown childhood Verified 03/20/24 15:42 allergy Home Medications ?Medication ?Instructions ?Recorded ?Confirmed ?Type naproxen sodium 220 mg capsule 220 mg PO BID PRN Pain 11/22/22 03/20/24 History (Aleve) semaglutide (weight loss) See Rx Instructions .Route .COMPLEX 02/29/24 03/20/24 History multivitamin 1 tablet PO DAILY 03/02/24 03/20/24 History losartan 50 mg tablet 50 mg PO DAILY #90 tabs 03/13/24 03/20/24 Rx trazodone 100 mg tablet 200 mg (2 x 100 mg) PO .hs PRN 03/13/24 03/20/24 Rx insomnia #180 tabs Patient hx anesthesia problems: none Family hx anesthesia problems: none Results Review: All pre-operative results and documents have been reviewed as part of the pre-operative evaluation. [facility] Past Medical History Medical History Positive colorectal cancer screening using Cologuard test Tobacco abuse Obesity Hypertension Alcoholism /alcohol abuse Hx of thyroid cancer Hyperglycemia Sleep apnea Elevated blood pressure reading Surgical History Surgical History H/O partial thyroidectomy History of tonsillectomy H/O hemorrhoidectomy Family History Family History Father Hypertension Mother No problems noted. Sibling Diverticulitis Father Hypertension Social History Social History Smoking packs per day: 0.5 Smoking cigarettes per day: 10.0 Years smoked: 30 Smoking pack-years: 15.00 Smoking status: Current every day smoker Tobacco type: cigarettes Additional smoking assessment comments: 2 packs per week Alcohol intake: current Drinks per week: 24 Alcohol use details: former alcoholic - quit 2020 Lack of Transportation: No Lack of Food: Never True Current Housing: I Have Housing Concerned About Future Housing: No Difficulty Paying Gas/Electric Bills: No Difficulty Paying for Meds: No Currently Unemployed: No Education: High School Diploma/GED Living arrangements: with family Spiritual care concerns: No Anes - Eval Final PreProcedure Day of Procedure 03/28/24 06:50 Patient weight: overweight Heart: regular rate and rhythm Lungs: decreased breath sounds Airway: Mallampati scale class II Neurological: alert and oriented Last oral intake: >/= 8 hours ASA classification: III Emergent: no Anesthetic plan: proceed Anesthesia type and monitoring: general LMA and standard monitoring Results Review: All pre-operative results and documents have been reviewed as part of the pre-operative evaluation. Informed Consent: The patient's anesthetic plan and its attendant risks and benefits were discussed with the patient/family/POA. Questions were solicited and answers provided to the satisfaction of the patient/family/POA.
[2024-03-28] MEDS: ceFAZolin 2 GM/D5W 50 ML 2 GM/50 ML BAG IVPB (07:26)
[2024-03-28] MEDS: LIDO 1%/EPINEPHRINE/PF 1:200,000 30 ML VIAL 10 ML XX (07:44)
[2024-03-28] MEDS: fentaNYL CITRATE INJ (*CRX) 100 MCG/2 ML VIAL 25 MCG IV PUSH ×4 (09:35→09:44)
[2024-03-28] MEDS: oxyCODONE HCL (*CRX) 5 MG TAB IR PO (10:09)
== END 2024-03-28 11:00 | disposition home or self-care (01) ==
PROVIDERS: PCP Internal Medicine; Visit Provider Plastic Surgery
PROC: (CPT 25447; principal; 2024-03-28 07:30)
DX: M18.12 Unilateral primary osteoarthritis of first carpometacarpal joint, left hand (principal); F17.210 Nicotine dependence, cigarettes, uncomplicated
CPT/HCPCS: 25447; 99199; A9270; C1713; J0690; J1100; J1171; J2003; J2004; J2250; J2405; J2704; J3010; J7120

== ENCOUNTER 2024-04-13 09:40 | Outpatient (CLI) | payer OTHER, SELFPAY ==
--- NOTE | ~2024-04-13 | XR_ITS ---
XR hand LT min 3V Ordering provider: Krysta Menendez PA-C History: . M18.12 - Unilateral primary osteoarthritis of first carpo... . Comparison: October 29, 2023 FINDINGS: BONES: No acute fracture or dislocation. Postoperative changes with surgical removal of the trapezium bone. Cast is seen around the left thumb. JOINT SPACES: Narrowing of the proximal and distal interphalangeal joints. SOFT TISSUES: Unremarkable. IMPRESSION: No acute osseous abnormality left hand. Postoperative changes in the area of the trapezium bone. Reviewed, dictated and finalized at location A. OMA DENTAL ASSISTANT
== END 2024-04-13 09:41 | disposition home or self-care (01) ==
PROVIDERS: PCP Internal Medicine; Visit Provider Physician Assistant Surgical
DX: M18.12 Unilateral primary osteoarthritis of first carpometacarpal joint, left hand (principal); Z98.890 Other specified postprocedural states
CPT/HCPCS: 73130

== ENCOUNTER 2024-07-03 16:30 | Outpatient (CLI) | payer OTHER, SELFPAY ==
--- NOTE | ~2024-07-03 | XR_ITS ---
XR hand LT 2V 07/03/2024 16:43 Indication: Osteoarthritis Procedure: 2 views left hand Comparison: 04/13/2024 Findings: There is mild polyarticular osteoarthritis of the MCP and interphalangeal joints. There are postoperative changes of trapezium resection with anchors at the bases of the first and second metac arpals. No fracture or traumatic malalignment. Impression: 1: Mild polyarticular osteoarthritis. Reviewed, dictated and finalized at location A. Impression: 1: Mild polyarticular osteoarthritis.
--- OUTSIDE RECORDS SUMMARY | 2024-07-03 18:39 | XMS_ITS | Continuity of Care Document ---
Author Organization [facility] Address [address] [place] [address] [place] [address] Phone Care Team Providers Care Scoring Machine Operator Name Role Phone Kayode Parisi MD Unavailable Unavailable Allergies, Adverse Reactions, Alerts Substance Reaction Status Criticality penicillin G Active No Information Medications Medication Instructions Dosage Effective Dates (start - stop) Status Comments trazodone 100 mg tablet take 2 Tablet (200MG) by oral route every bedtime 200 MG - Active hydrocortisone 2.5 % Rectal Cream apply by topical route 2 times every day to the affected area(s) - Active Vicodin 5 mg-500 mg tablet take 1 tablet by oral route every 4 - 6 hours as needed for pain - Active avoid driving or operate machines Procedures Procedure Date PREV VISIT, EST, AGE 40-64 OFFICE/OUTPATIENT VISIT, EST Advance Directives Directive Yes / No Effective Date File Name No Information Encounters Encounter Description Practice Location Reason(s) For Visit Diagnoses Date Provider Providers Copied on Encounter [facility], [address] [place], [place], [id number], tel:[phone] [facility] No Information 3 Isak Headley. [address], [place], [id number] , [place]. tel:[phone] [facility], [address], [place], [id number], [place] tel:[phone] [facility] No Information 0 3 Isak Headley. [address], [place], [id number] , [place]. tel:[phone] PREV VISIT, EST, AGE 40-64 [facility], [address] [place], [place], [id number], [place] tel:[phone] [facility] Physical (chief complaint) Hemorrhoid (chief complaint) Dietary surveillance and counselingRoutine Medical ExamSleep ApneaHypertension, UnspecifiedExternal thrombosed hemorrhoidsRoutine Medical Exam 3 Isak Headley. [address], [place], [place], [id number] , [place]. [phone] Referring Provider: Kayode Parisi, [address], [place], [place], [id number]. tel:[phone] Family History Family Member Type Diagnosis Age At Onset Father Problem (finding) Alive and well Brother Problem (finding) Alive and well Mother Problem (finding) Alive and well Payers Payer name Insurance type Covered republican ID Authoriza tion(s) No Information Social History Type Description Quantity Date Captured Comments Sex Male Smoking Status No Information Chief Complaint And Reason For Visit No Information Plan Of Treatment Date Type Action Status Referral Ordered: Referral: Genrl Surg. Evaluate and treat. ordered History Of Present Illness Encounter Date Complaint History Of Prese nt Illness No Information Instructions Date Instruction Additional Infor karen Dietary counseling Related to Di etary surveillance counseling Decrease caloric intake Related to Dietary surveillance counseling Assessments Type Assessment Date No Information
== END 2024-07-03 16:31 | disposition home or self-care (01) ==
PROVIDERS: PCP Internal Medicine; Visit Provider Physician Assistant Surgical
DX: M18.12 Unilateral primary osteoarthritis of first carpometacarpal joint, left hand (principal)
CPT/HCPCS: 73120